=== PATIENT | male | born 1960 | race Caucasian/White ===

== ENCOUNTER → 2016-12-06 | Outpatient (CLI) | payer BC | END | disposition home or self-care (01) | LOC: C.RDSM 13:38 | PROVIDERS: ATTEND Family Medicine | DX: M25.551 Pain in right hip (principal) ==

== ENCOUNTER → 2017-08-03 | Outpatient (CLI) | payer OTHER ==
--- NOTE | 2017-08-03 09:06 | DIAGNOSTIC IMAGING REPORT ---
MRI THE SACROILIAC JOINTS NO CONTRAST CLINICAL HISTORY: M46.1 Sacroiliitis, ankylosing spondylitis. Low back pain. COMPARISON STUDY: No previous studies for comparison. FINDINGS: Imaging was performed in the axial coronal and axial planes. There are no areas of marrow edema to indicate occult fracture or neoplasm. There is no pathologic SI joint edema. There is no evidence of SI joint fusion. Degenerative changes are present within the lower lumbar spine. IMPRESSION: No MRI evidence of sacroiliitis. Electronically signed by: Fei Ga M.D. 08/03/2017 9:05 AM Dictated Date/Time: 08/03/2017 9:02 AM
--- NOTE | 2017-08-03 09:25 | DIAGNOSTIC IMAGING REPORT ---
SI JOINTS 3 OR MORE VIEWS CLINICAL HISTORY: M46.1 Sacroiliitis, not elsewhere [id number]. Right-sided SI joint pain. COMPARISON STUDY: Sacroiliac joint MRI 08/03/2017. FINDINGS: No fractures identified within the sacrum. Bilateral sacroiliac joints are within normal limits. No erosions identified. No significant sclerosis. 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 IMPRESSION: No evidence for sacroiliitis. Electronically signed by: Abiodun Waters M.D. 08/03/2017 9:23 AM Dictated Date/Time: 08/03/2017 9:22 AM
== END | disposition home or self-care (01) ==
LOC: C.RAD 07:55
PROVIDERS: ATTEND Internal Medicine Rheumatology
DX: M46.1 Sacroiliitis, not elsewhere classified (principal)

== ENCOUNTER → 2017-09-14 | Outpatient (CLI) | payer OTHER | END | disposition home or self-care (01) | LOC: C.RDSM 17:43 | PROVIDERS: ATTEND Family Medicine | DX: M25.522 Pain in left elbow (principal); M77.02 Medial epicondylitis, left elbow; Z88.0 Allergy status to penicillin; Z88.8 Allergy status to other drugs, medicaments and biological substances ==

== ENCOUNTER → 2017-09-21 | Outpatient (CLI) | payer OTHER ==
--- NOTE | 2017-09-21 14:43 | DIAGNOSTIC IMAGING REPORT ---
ORBIT RADIOGRAPHS 3 VIEWS HISTORY: pre-MRI screening. COMPARISON: Orbit radiographs August 01, 2017. FINDINGS: There are no radiopaque foreign bodies identified within the orbits. IMPRESSION: No radiopaque foreign bodies identified within the orbits. Electronically signed by: Alfnoso Peterson M.D. 09/21/2017 2:42 PM Dictated Date/Time: 09/21/2017 2:41 PM
--- NOTE | 2017-09-21 16:05 | DIAGNOSTIC IMAGING REPORT ---
L UPPER EXT JOINT WITHOUT CLINICAL HISTORY: 57 years-old Male presenting with LEFT ELBOW PAIN. TECHNIQUE: Multisequence, multiplanar MR imaging of the left elbow was performed without the use of intravenous contrast. IV contrast: None. COMPARISON: Plain radiographs from 09/14/2017. FINDINGS: Localizer images: Unremarkable. Minimal bony edema suggested at the medial epicondyles of the humerus. Increased signal intensity of the radial collateral ligament at the lateral epicondyle. Superficial to the radial collateral ligament is laminar fluid, deep to the common extensor tendon. Minimal cystic change at the origin of the common extensor tendon. Annular ligament intact. Lateral ulnar collateral ligament intact. Ulnar collateral ligament intact. Increased signal intensity and overlying superficial edema at the origin of the common flexor tendon. A partial tear is suggested at this site (series 7 image 17). Triceps tendon intact. Biceps tendon intact. Brachialis tendon intact. Normal appearance of the median, ulnar, and radial nerves. Small elbow joint effusion. Normal muscle bulk and muscle signal intensity. IMPRESSION: 1. Findings consistent with medial epicondylitis with concern for a partial tear of the origin of the common flexor tendon. Intact ulnar collateral ligament. 2. 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 3. Small elbow joint effusion. Electronically signed by: Juan Freedman M.D. 09/21/2017 4:03 PM Dictated Date/Time: 09/21/2017 3:51 PM
== END | disposition home or self-care (01) ==
LOC: C.RAD 14:22
PROVIDERS: ATTEND Family Medicine
DX: M77.02 Medial epicondylitis, left elbow (principal); M89.8X3 Other specified disorders of bone, forearm; M25.422 Effusion, left elbow; Z88.0 Allergy status to penicillin; Z88.8 Allergy status to other drugs, medicaments and biological substances